=== PATIENT | female | born 1990 | race Caucasian/White ===

== ENCOUNTER → 2017-10-27 | Outpatient (CLI) | payer OTHER ==
[2017-10-27 09:23] LABS: BASOPHIL % 0.5 % (0-2); PLATELET COUNT 281 x10^3mcL (130-400); RED CELL DISTRIBUTION WIDTH 13.4 % (11.5-14.5)
[2017-10-27 09:43] LABS: ALBUMIN 4.3 g/dL (3.4-5.0); ALKALINE PHOSPHATASE 71 U/L (46-116); ALT/SGPT 31 U/L (14-59); AST/SGOT 22 U/L (15-37); BILIRUBIN DIRECT 0.16 mg/dL (0.0-0.2); CARBON DIOXIDE 25.5 mmol/L (21-32); CHLORIDE SERUM 103 mmol/L (98-107); CHOLESTEROL 145 mg/dL (<200); CHOLESTEROL/HDL RATIO 2.7; CREATININE SERUM 0.8 mg/dL (0.6-1.0); FREE T4 1.04 ng/dL (0.76-1.46); GFR1 > 60 mL/min; GLUCOSE SERUM 87 mg/dL (74-106); HDL CHOLESTEROL 54 mg/dL (40-60); POTASSIUM SERUM 3.9 mmol/L (3.5-5.1); SODIUM SERUM 138 mmol/L (136-145); TOTAL PROTEIN, SERUM 7.7 g/dL (6.4-8.2); TRIGLYCERIDES 65 mg/dL (<150)
[2017-10-27 14:01] LABS: UA SPECIFIC GRAVITY 1.025 (1.005-1.035)
[2017-10-27 14:02] LABS: microscopic required? YES; urine erythrocyte 3+ (NEGATIVE)
[2017-10-28 09:20] LABS: RAPID PLASMA REAGIN Non Reactive (Non Reactive)
== END | disposition home or self-care (01) ==
LOC: LB 08:26
PROVIDERS: Family Medicine
DX: Z00.00 Encounter for general adult medical examination without abnormal findings (principal)
CPT/HCPCS: 84439; 86694; 87491; 87591